=== PATIENT | male | born 1970 | race African-American/Black ===

== ENCOUNTER 2019-08-25 13:00 | Inpatient (IN) | payer BC ==
[2019-08-25] MEDS ORDERED: Sodium Chloride 0.9% 1,000 ML IV ONE ×2 (13:16→14:30)
[2019-08-25] MEDS ORDERED: Ondansetron 4 MG/2 ML SDV IVPUSH ONE (13:23)
--- NOTE | 2019-08-25 13:25 | EDM.PDOC ---
ED HPI GENERAL MEDICAL PROBLEM - General Chief Complaint: Gastrointestinal Problem Stated Complaint: WEAKNESS Time Seen by Provider: 08/25/19 13:03 Source of Information: Reports: Patient History Limitations: Reports: No Limitations - History of Present Illness INITIAL COMMENTS - FREE TEXT/NARRATIVE: HISTORY AND PHYSICAL: History of present illness: Patient is a 49-year-old male who presents to the ED today for concern of vomiting, weakness, and dizziness since Wednesday. Patient states every time he goes to eat he vomits shortly after. Patient states he had an appointment today at [facility] but had to get rescheduled for Wednesday. Patient states he has unable to weight on Wednesday to be seen so came to the ED. Patient denies any other associated symptoms or any other symptoms or concerns. Patient denies fever, chills, chest pain, shortness of breath, or cough. Denies headache, neck stiff ness, change in vision, syncope, or near syncope. Denies abdominal pain, diarrhea, constipation, or dysuria. Has not noted any blood in urine or stool. Review of systems: As per history of present illness and below otherwise all systems reviewed and negative. Past medical history: As per history of present illness and as reviewed below otherwise noncontributory. Surgical history: As per history of present illness and as reviewed below otherwise noncontributory. Social history: See social history for further information Family history: As per history of present illness and as reviewed below otherwise noncontributory. Physical exam: General: Patient is alert, oriented, and in no acute distress. Patient laying comfortably on exam table. HEENT: Atraumatic, normocephalic, pupils equal and reactive bilaterally, negative for conjunctival pallor or scleral icterus, mucous membranes dry, TMs normal bilaterally, throat clear, neck supple, nontender, trachea midline. No drooling or trismus noted. No meningeal signs. No hot potato voice noted. Lungs: Clear to auscultation, breath sounds equal bilaterally, chest nontender. Heart: S1S2, regular rate and rhythm without overt murmur Abdomen: Soft, nondistended, nontender. Negative for masses or hepatosplenomegaly. Negative for costovertebral tenderness. Pelvis: Stable nontender. Genitourinary: Deferred. Rectal: Deferred. Skin: Intact, warm, dry. No lesions or rashes noted. Extremities: Atraumatic, negative for cords or calf pain. Neurovascular unremarkable. Neuro: Awake, alert, oriented. Cranial nerves II through XII unremarkable. Cerebellum unremarkable. Motor and sensory unremarkable throughout. Exam nonfocal. Notes: Dr. Skelton consulted on patient and will admit to ICU inpatient. Voices understanding and is agreeable to plan of care. Denies any further questions or concerns at this time. Diagnostics: EKG, CBC, CMP, UA, chest x-ray, troponin, head CT, PT/INR, lipase, orthostatic vitals, ABG, blood ketone Therapeutics: Saline, Zofran, Insulin gtt Impression: Diabetic Ketoacidosis Newly diagnosed diabetes Plan: 1. Admit to ICU to Dr. Skelton as inpatient. Definitive disposition and diagnosis as appropriate pending reevaluation and review of above. - Related Data Allergies Allergy/AdvReac Type Severity Reaction Status Date / Time No Known Allergies Allergy Verified 08/25/19 13:09 Home Meds: Home Meds . [No Known Home Meds] 08/25/19 [History] Past Medical History - Past Health History Medical/Surgical History: Denies Medical/Surgical History - Infectious Disease History Infectious Disease History: Reports: None Social & Family History - Family History Family Medical History: Noncontributory - Tobacco Use Smoking Status *Q: Never Smoker - Recreational Drug Use Recreational Drug Use: No ED ROS GENERAL - Review of Systems Review Of Systems: ROS reveals no pertinent complaints other than HPI. ED EXAM, GENERAL - Physical Exam Exam: See Below (See dictation) Course - Vital Signs Last Recorded V/S: Last Vital Signs Temp 97.2 F 08/25/19 13:10 Pulse 96 08/25/19 13:10 Resp 18 08/25/19 13:10 BP 147/100 H 08/25/19 13:10 Pulse Ox 100 08/25/19 13:10 - Orders/Labs/Meds Orders: Active Orders 24 hr Category Date Time Status Admission Status [Patient Status] [ADT] Stat ADT 08/25/19 14:47 Ordered EKG Documentation Completion [RC] STAT Care 08/25/19 13:06 Active Orthostatic Vital Signs [RC] ASDIRECTED Care 08/25/19 13:26 Active GLYCOSYLATED HEMOGLOBIN,HGBA1C [CHEM] Stat Lab 08/25/19 13:30 Received Insulin Regular, Human [NovoLIN R] 100 unit Med 08/25/19 14:45 Active Sodium Chloride 0.9% [Normal Saline] 99 ml IV TITRATE Sodium Chloride 0.9% [Normal Saline] 1,000 ml Med 08/25/19 14:30 Active IV ONETIME Medication Orders Sodium Chloride (Normal Saline) 1,000 mls @ 999 mls/hr IV ONETIME ONE Stop: 08/25/19 15:30 Last Admin: 08/25/19 14:31 Dose: 999 mls/hr Insulin Human Regular 100 unit (/ Sodium Chloride) 100 mls @ 7 mls/hr IV TITRATE SOMMER; Protocol Labs: Laboratory Tests 08/25/19 08/25/19 08/25/19 Range/Units 13:30 13:30 13:30 WBC 6.64 (4.0-11.0) K/uL RBC 5.94 H (4.50-5.90) M/uL Hgb 15.7 (13.0-17.0) g/dL Hct 49.1 (38.0-50.0) % MCV 82.7 (80.0-98.0) fL MCH 26.4 L (27.0-32.0) pg MCHC 32.0 (31.0-37.0) g/dL RDW Std Deviation 43.9 (28.0-62.0) fl RDW Coeff of Gisel 15 (11.0-15.0) % Plt Count 189 (150-400) K/uL MPV 13.20 H (7.40-12.00) fL Neut % (Auto) 56.8 (48.0-80.0) % Lymph % (Auto) 35.8 (16.0-40.0) % [place] % (Auto) 6.9 (0.0-15.0) % Eos % (Auto) 0.2 (0.0-7.0) % Baso % (Auto) 0.3 (0.0-1.5) % Neut # (Auto) 3.8 (1.4-5.7) K/uL Lymph # (Auto) 2.4 (0.6-2.4) K/uL [place] # (Auto) 0.5 (0.0-0.8) K/uL Eos # (Auto) 0.0 (0.0-0.7) K/uL Baso # (Auto) 0.0 (0.0-0.1) K/uL Nucleated RBC % 0.0 /100WBC Nucleated RBCs # 0 K/uL INR 1.00 ABG pH (7.35-7.45) ABG pCO2 (35-45) mmHG ABG pO2 (75-100) mmHG ABG HCO3 (22-26) mEq/L ABG Total CO2 ABG Base Excess (-2.0-2.0) Sodium 133 L (136-148) mmol/L Potassium 5.3 H (3.5-5.1) mmol/L Chloride 93 L (98-107) mmol/L Carbon Dioxide 21.7 (21.0-32.0) mmol/L BUN 33 H (7.0-18.0) mg/dL Creatinine 2.0 H (0.8-1.3) mg/dL Est Cr Clr Drug Dosing 38.86 mL/min Estimated GFR (MDRD) 43.3 ml/min Glucose 947 H* (74-106) mg/dL POC Glucose (60-110) mg/dL Calcium 10.0 (8.5-10.1) mg/dL Total Bilirubin 0.5 (0.2-1.0) mg/dL AST 20 (15-37) IU/L ALT 35 (14-63) IU/L Alkaline Phosphatase 95 (46-116) U/L Troponin I < 0.050 (0.000-0.056) ng/mL Total Protein 9.3 H (6.4-8.2) g/dL Albumin 3.8 (3.4-5.0) g/dL Globulin 5.5 H (2.6-4.0) g/dL Albumin/Globulin Ratio 0.7 L (0.9-1.6) Lipase (73-393) U/L Urine Color Urine Appearance Urine pH (5.0-8.0) Ur Specific [place] (1.001-1.035) Urine Protein (NEGATIVE) mg/dL Urine Glucose (UA) (NEGATIVE) mg/dL Urine Ketones (NEGATIVE) mg/dL Urine Occult Blood (NEGATIVE) Urine Nitrite (NEGATIVE) Urine Bilirubin (NEGATIVE) Urine Urobilinogen (<2.0) EU/dL Ur Leukocyte Esterase (NEGATIVE) Ketones (NEG) 08/25/19 08/25/19 08/25/19 Range/Units 13:30 13:30 13:37 WBC (4.0-11.0) K/uL RBC (4.50-5.90) M/uL Hgb (13.0-17.0) g/dL Hct (38.0-50.0) % MCV (80.0-98.0) fL MCH (27.0-32.0) pg MCHC (31.0-37.0) g/dL RDW Std Deviation (28.0-62.0) fl RDW Coeff of Gisel (11.0-15.0) % Plt Count (150-400) K/uL MPV (7.40-12.00) fL Neut % (Auto) (48.0-80.0) % Lymph % (Auto) (16.0-40.0) % [place] % (Auto) (0.0-15.0) % Eos % (Auto) (0.0-7.0) % Baso % (Auto) (0.0-1.5) % Neut # (Auto) (1.4-5.7) K/uL Lymph # (Auto) (0.6-2.4) K/uL [place] # (Auto) (0.0-0.8) K/uL Eos # (Auto) (0.0-0.7) K/uL Baso # (Auto) (0.0-0.1) K/uL Nucleated RBC % /100WBC Nucleated RBCs # K/uL INR ABG pH (7.35-7.45) ABG pCO2 (35-45) mmHG ABG pO2 (75-100) mmHG ABG HCO3 (22-26) mEq/L ABG Total CO2 ABG Base Excess (-2.0-2.0) Sodium (136-148) mmol/L Potassium (3.5-5.1) mmol/L Chloride (98-107) mmol/L Carbon Dioxide (21.0-32.0) mmol/L BUN (7.0-18.0) mg/dL Creatinine (0.8-1.3) mg/dL Est Cr Clr Drug Dosing mL/min Estimated GFR (MDRD) ml/min Glucose (74-106) mg/dL POC Glucose (60-110) mg/dL Calcium (8.5-10.1) mg/dL Total Bilirubin (0.2-1.0) mg/dL AST (15-37) IU/L ALT (14-63) IU/L Alkaline Phosphatase (46-116) U/L Troponin I (0.000-0.056) ng/mL Total Protein (6.4-8.2) g/dL Albumin (3.4-5.0) g/dL Globulin (2.6-4.0) g/dL Albumin/Globulin Ratio (0.9-1.6) Lipase 218 (73-393) U/L Urine Color YELLOW Urine Appearance CLEAR Urine pH 5.5 (5.0-8.0) Ur Specific [place] 1.010 (1.001-1.035) Urine Protein NEGATIVE (NEGATIVE) mg/dL Urine Glucose (UA) >=1000 (NEGATIVE) mg/dL Urine Ketones 15 H (NEGATIVE) mg/dL Urine Occult Blood NEGATIVE (NEGATIVE) Urine Nitrite NEGATIVE (NEGATIVE) Urine Bilirubin NEGATIVE (NEGATIVE) Urine Urobilinogen 0.2 (<2.0) EU/dL Ur Leukocyte Esterase NEGATIVE (NEGATIVE) Ketones SMALL H (NEG) 08/25/19 08/25/19 Range/Units 14:26 14:36 WBC (4.0-11.0) K/uL RBC (4.50-5.90) M/uL Hgb (13.0-17.0) g/dL Hct (38.0-50.0) % MCV (80.0-98.0) fL MCH (27.0-32.0) pg MCHC (31.0-37.0) g/dL RDW Std Deviation (28.0-62.0) fl RDW Coeff of Gisel (11.0-15.0) % Plt Count (150-400) K/uL MPV (7.40-12.00) fL Neut % (Auto) (48.0-80.0) % Lymph % (Auto) (16.0-40.0) % [place] % (Auto) (0.0-15.0) % Eos % (Auto) (0.0-7.0) % Baso % (Auto) (0.0-1.5) % Neut # (Auto) (1.4-5.7) K/uL Lymph # (Auto) (0.6-2.4) K/uL [place] # (Auto) (0.0-0.8) K/uL Eos # (Auto) (0.0-0.7) K/uL Baso # (Auto) (0.0-0.1) K/uL Nucleated RBC % /100WBC Nucleated RBCs # K/uL INR ABG pH 7.330 L (7.35-7.45) ABG pCO2 39 (35-45) mmHG ABG pO2 66 L (75-100) mmHG ABG HCO3 21 L (22-26) mEq/L ABG Total CO2 18.5 ABG Base Excess -4.9 L (-2.0-2.0) Sodium (136-148) mmol/L Potassium (3.5-5.1) mmol/L Chloride (98-107) mmol/L Carbon Dioxide (21.0-32.0) mmol/L BUN (7.0-18.0) mg/dL Creatinine (0.8-1.3) mg/dL Est Cr Clr Drug Dosing mL/min Estimated GFR (MDRD) ml/min Glucose (74-106) mg/dL POC Glucose > 500 H (60-110) mg/dL Calcium (8.5-10.1) mg/dL Total Bilirubin (0.2-1.0) mg/dL AST (15-37) IU/L ALT (14-63) IU/L Alkaline Phosphatase (46-116) U/L Troponin I (0.000-0.056) ng/mL Total Protein (6.4-8.2) g/dL Albumin (3.4-5.0) g/dL Globulin (2.6-4.0) g/dL Albumin/Globulin Ratio (0.9-1.6) Lipase (73-393) U/L Urine Color Urine Appearance Urine pH (5.0-8.0) Ur Specific [place] (1.001-1.035) Urine Protein (NEGATIVE) mg/dL Urine Glucose (UA) (NEGATIVE) mg/dL Urine Ketones (NEGATIVE) mg/dL Urine Occult Blood (NEGATIVE) Urine Nitrite (NEGATIVE) Urine Bilirubin (NEGATIVE) Urine Urobilinogen (<2.0) EU/dL Ur Leukocyte Esterase (NEGATIVE) Ketones (NEG) Meds: Medications Generic Name Dose Route Start Last Admin Trade Name Ryanne PRN Reason Stop Dose Admin Sodium Chloride 1,000 mls @ 999 mls/hr 08/25/19 14:30 08/25/19 14:31 Normal Saline IV 08/25/19 15:30 999 mls/hr ONETIME ONE Administration Insulin Human Regular 100 unit 100 mls @ 7 mls/hr 08/25/19 14:45 / Sodium Chloride IV TITRATE SOMMER Protocol 7 UNIT/HR Discontinued Medications Generic Name Dose Route Start Last Admin Trade Name Ryanne PRN Reason Stop Dose Admin Sodium Chloride 1,000 mls @ 999 mls/hr 08/25/19 13:16 08/25/19 13:34 Normal Saline IV 08/25/19 14:16 999 mls/hr STAT ONE Administration Ondansetron HCl 4 mg 08/25/19 13:23 08/25/19 13:34 Zofran IVPUSH 08/25/19 13:24 4 mg ONETIME ONE Administration Departure - Departure Time of Disposition: 14:49 Disposition: Admitted As Inpatient 66 Clinical Impression: Newly diagnosed diabetes Diabetic ketoacidosis Qualifiers: Diabetes mellitus type: other specified (including MANDIE) Diabetes mellitus complication detail: without coma Qualified Code(s): E13.10 - Other specified diabetes mellitus with ketoacidosis without coma - Discharge Information Referrals: PCP,None [Primary Care Provider] - Forms: ED Department Discharge - My Orders Last 24 Hours: My Active Orders 08/25/19 13:06 EKG Documentation Completion [RC] STAT 08/25/19 13:26 Orthostatic Vital Signs [RC] ASDIRECTED 08/25/19 13:30 GLYCOSYLATED HEMOGLOBIN,HGBA1C [CHEM] Stat 08/25/19 14:30 Sodium Chloride 0.9% [Normal Saline] 1,000 ml IV ONETIME 08/25/19 14:45 Insulin Regular, Human [NovoLIN R] 100 unit Sodium Chloride 0.9% [Normal Saline] 99 ml IV TITRATE 08/25/19 14:47 Admission Status [Patient Status] [ADT] Stat - Assessment/Plan Last 24 Hours: My Active Orders 08/25/19 13:06 EKG Documentation Completion [RC] STAT 08/25/19 13:26 Orthostatic Vital Signs [RC] ASDIRECTED 08/25/19 13:30 GLYCOSYLATED HEMOGLOBIN,HGBA1C [CHEM] Stat 08/25/19 14:30 Sodium Chloride 0.9% [Normal Saline] 1,000 ml IV ONETIME 08/25/19 14:45 Insulin Regular, Human [NovoLIN R] 100 unit Sodium Chloride 0.9% [Normal Saline] 99 ml IV TITRATE 08/25/19 14:47 Admission Status [Patient Status] [ADT] Stat
--- NOTE | 2019-08-25 13:55 | CR ---
Chest: Portable view of the chest was obtained. Comparison: No prior chest x-ray is available. Heart size and mediastinum are normal. Lungs are clear. Bony structures are grossly intact. Impression: Nothing acute is identified on portable chest x-ray. Diagnostic code #1 MTDD
[2019-08-25 14:11] LABS: BLOOD UREA NITROGEN,BUN 33 mg/dL (7.0-18.0); CARBON DIOXIDE,CO2 21.7 mmol/L (21.0-32.0); CHLORIDE,CL 93 mmol/L (98-107); POTASSIUM,K 5.3 mmol/L (3.5-5.1); SODIUM,NA 133 mmol/L (136-148)
--- NOTE | 2019-08-25 14:24 | CT ---
Head CT Technique: Multiple axial sections through the brain were obtained. Intravenous contrast was not utilized. Comparison: No prior intracranial imaging is available. Findings: Ventricles along with basal cistern and sulci over the convexities are within normal limits for the patient's age. No abnormal parenchymal densities are seen. No evidence of intracranial hemorrhage. No midline shift or mass effect is seen. Mastoid sinuses are clear. No acute paranasal sinus disease is seen. Impression: Nothing acute is appreciated on noncontrast head CT exam. Diagnostic code #1 MTDD
[2019-08-25 14:34] LABS: GLUCOSE RANDOM 947 mg/dL (74-106)
[2019-08-25 15:03] LABS: HEMOGLOBIN A1C 11.3 % (4.5-6.2)
--- NOTE | 2019-08-25 15:50 | PCM.HP.2 ---
H&P History of Present Illness - General Date of Service: 08/25/19 Admit Problem/Dx: Admission Diagnosis/Problem Admission Diagnosis/Problem Diabetic ketoacidosis - History of Present Illness Initial Comments - Free Text/Narative: 49 y/o male with no PMH presenting today to the ER complaining of weakness, confusion. Patient has been having nausea, vomiting, weakness since last Wednesday. No previous history of diabetes. Denies any recent infections. No fevers. Denies any chest pain, dyspnea, abdominal pain, dysuria, diarrhea. In the ER, he was found to be hyperglycemic at 900. In addition, ABG showed pH 7.33 , HCO3 21. Some urine ketones. CT head did not show any intracranial hemorrhage. Chest xray was unremarkable. He was started on insulin drip and given 2 NS boluses. Most recent glucose was still above 500 but patient more alert and responding to questions. - Related Data Allergies/Adverse Reactions: Allergies Allergy/AdvReac Type Severity Reaction Status Date / Time No Known Allergies Allergy Verified 08/25/19 13:09 Home Medications: Home Meds . [No Known Home Meds] 08/25/19 [History] Past Medical History - Past Health History Medical/Surgical History: Denies Medical/Surgical History - Infectious Disease History Infectious Disease History: Reports: None Social & Family History - Family History Family Medical History: Noncontributory - Tobacco Use Smoking Status *Q: Never Smoker - Recreational Drug Use Recreational Drug Use: No H&P Review of Systems - Review of Systems: Review Of Systems: ROS reveals no pertinent complaints other than HPI. Exam - Exam Exam: See Below - Vital Signs Vital Signs: Last Vital Signs Temp 36.2 C 08/25/19 13:10 Pulse 96 08/25/19 13:10 Resp 18 08/25/19 13:10 BP 147/100 H 08/25/19 13:10 Pulse Ox 100 08/25/19 13:10 Orthostatic Blood Pressure [ 131/91 Standing] Orthostatic Blood Pressure [ 117/83 Sitting] Orthostatic Blood Pressure [ 134/78 Supine] Weight: 77.564 kg - Exam General: Alert, Oriented, Cooperative HEENT: Other (dry oral mucosa) Lungs: Clear to Auscultation, Normal Respiratory Effort. No: Crackles, Wheezing Cardiovascular: Regular Rate, Regular Rhythm GI/Abdominal Exam: Normal Bowel Sounds, Soft, Non-Tender Extremities: Normal Inspection, No Pedal Edema Skin: Dry Neuro Extensive - Mental Status: Alert, Oriented x3 - Patient Data Lab Results Last 24 hrs: Laboratory Results - last 24 hr 08/25/19 08/25/19 08/25/19 Range/Units 13:30 13:30 13:30 WBC 6.64 (4.0-11.0) K/uL RBC 5.94 H (4.50-5.90) M/uL Hgb 15.7 (13.0-17.0) g/dL Hct 49.1 (38.0-50.0) % MCV 82.7 (80.0-98.0) fL MCH 26.4 L (27.0-32.0) pg MCHC 32.0 (31.0-37.0) g/dL RDW Std Deviation 43.9 (28.0-62.0) fl RDW Coeff of Gisel 15 (11.0-15.0) % Plt Count 189 (150-400) K/uL MPV 13.20 H (7.40-12.00) fL Neut % (Auto) 56.8 (48.0-80.0) % Lymph % (Auto) 35.8 (16.0-40.0) % S[place]y % (Auto) 6.9 (0.0-15.0) % Eos % (Auto) 0.2 (0.0-7.0) % Baso % (Auto) 0.3 (0.0-1.5) % Neut # (Auto) 3.8 (1.4-5.7) K/uL Lymph # (Auto) 2.4 (0.6-2.4) K/uL [place]y # (Auto) 0.5 (0.0-0.8) K/uL Eos # (Auto) 0.0 (0.0-0.7) K/uL Baso # (Auto) 0.0 (0.0-0.1) K/uL Nucleated RBC % 0.0 /100WBC Nucleated RBCs # 0 K/uL INR 1.00 ABG pH (7.35-7.45) ABG pCO2 (35-45) mmHG ABG pO2 (75-100) mmHG ABG HCO3 (22-26) mEq/L ABG Total CO2 ABG Base Excess (-2.0-2.0) Sodium 133 L (136-148) mmol/L Potassium 5.3 H (3.5-5.1) mmol/L Chloride 93 L (98-107) mmol/L Carbon Dioxide 21.7 (21.0-32.0) mmol/L BUN 33 H (7.0-18.0) mg/dL Creatinine 2.0 H (0.8-1.3) mg/dL Est Cr Clr Drug Dosing 38.86 mL/min Estimated GFR (MDRD) 43.3 ml/min Glucose 947 H* (74-106) mg/dL POC Glucose (60-110) mg/dL Hemoglobin A1c (4.5-6.2) % Calcium 10.0 (8.5-10.1) mg/dL Total Bilirubin 0.5 (0.2-1.0) mg/dL AST 20 (15-37) IU/L ALT 35 (14-63) IU/L Alkaline Phosphatase 95 (46-116) U/L Troponin I < 0.050 (0.000-0.056) ng/mL Total Protein 9.3 H (6.4-8.2) g/dL Albumin 3.8 (3.4-5.0) g/dL Globulin 5.5 H (2.6-4.0) g/dL Albumin/Globulin Ratio 0.7 L (0.9-1.6) Lipase (73-393) U/L Urine Color Urine Appearance Urine pH (5.0-8.0) Ur Specific [place] (1.001-1.035) Urine Protein (NEGATIVE) mg/dL Urine Glucose (UA) (NEGATIVE) mg/dL Urine Ketones (NEGATIVE) mg/dL Urine Occult Blood (NEGATIVE) Urine Nitrite (NEGATIVE) Urine Bilirubin (NEGATIVE) Urine Urobilinogen (<2.0) EU/dL Ur Leukocyte Esterase (NEGATIVE) Ketones (NEG) 08/25/19 08/25/19 08/25/19 Range/Units 13:30 13:30 13:30 WBC (4.0-11.0) K/uL RBC (4.50-5.90) M/uL Hgb (13.0-17.0) g/dL Hct (38.0-50.0) % MCV (80.0-98.0) fL MCH (27.0-32.0) pg MCHC (31.0-37.0) g/dL RDW Std Deviation (28.0-62.0) fl RDW Coeff of Gisel (11.0-15.0) % Plt Count (150-400) K/uL MPV (7.40-12.00) fL Neut % (Auto) (48.0-80.0) % Lymph % (Auto) (16.0-40.0) % Sibley % (Auto) (0.0-15.0) % Eos % (Auto) (0.0-7.0) % Baso % (Auto) (0.0-1.5) % Neut # (Auto) (1.4-5.7) K/uL Lymph # (Auto) (0.6-2.4) K/uL S[place]y # (Auto) (0.0-0.8) K/uL Eos # (Auto) (0.0-0.7) K/uL Baso # (Auto) (0.0-0.1) K/uL Nucleated RBC % /100WBC Nucleated RBCs # K/uL INR ABG pH (7.35-7.45) ABG pCO2 (35-45) mmHG ABG pO2 (75-100) mmHG ABG HCO3 (22-26) mEq/L ABG Total CO2 ABG Base Excess (-2.0-2.0) Sodium (136-148) mmol/L Potassium (3.5-5.1) mmol/L Chloride (98-107) mmol/L Carbon Dioxide (21.0-32.0) mmol/L BUN (7.0-18.0) mg/dL Creatinine (0.8-1.3) mg/dL Est Cr Clr Drug Dosing mL/min Estimated GFR (MDRD) ml/min Glucose (74-106) mg/dL POC Glucose (60-110) mg/dL Hemoglobin A1c 11.3 H (4.5-6.2) % Calcium (8.5-10.1) mg/dL Total Bilirubin (0.2-1.0) mg/dL AST (15-37) IU/L ALT (14-63) IU/L Alkaline Phosphatase (46-116) U/L Troponin I (0.000-0.056) ng/mL Total Protein (6.4-8.2) g/dL Albumin (3.4-5.0) g/dL Globulin (2.6-4.0) g/dL Albumin/Globulin Ratio (0.9-1.6) Lipase 218 (73-393) U/L Urine Color Urine Appearance Urine pH (5.0-8.0) Ur Specific [place] (1.001-1.035) Urine Protein (NEGATIVE) mg/dL Urine Glucose (UA) (NEGATIVE) mg/dL Urine Ketones (NEGATIVE) mg/dL Urine Occult Blood (NEGATIVE) Urine Nitrite (NEGATIVE) Urine Bilirubin (NEGATIVE) Urine Urobilinogen (<2.0) EU/dL Ur Leukocyte Esterase (NEGATIVE) Ketones SMALL H (NEG) 08/25/19 08/25/19 08/25/19 Range/Units 13:37 14:26 14:36 WBC (4.0-11.0) K/uL RBC (4.50-5.90) M/uL Hgb (13.0-17.0) g/dL Hct (38.0-50.0) % MCV (80.0-98.0) fL MCH (27.0-32.0) pg MCHC (31.0-37.0) g/dL RDW Std Deviation (28.0-62.0) fl RDW Coeff of Gisel (11.0-15.0) % Plt Count (150-400) K/uL MPV (7.40-12.00) fL Neut % (Auto) (48.0-80.0) % Lymph % (Auto) (16.0-40.0) % Sibley % (Auto) (0.0-15.0) % Eos % (Auto) (0.0-7.0) % Baso % (Auto) (0.0-1.5) % Neut # (Auto) (1.4-5.7) K/uL Lymph # (Auto) (0.6-2.4) K/uL [place] # (Auto) (0.0-0.8) K/uL Eos # (Auto) (0.0-0.7) K/uL Baso # (Auto) (0.0-0.1) K/uL Nucleated RBC % /100WBC Nucleated RBCs # K/uL INR ABG pH 7.330 L (7.35-7.45) ABG pCO2 39 (35-45) mmHG ABG pO2 66 L (75-100) mmHG ABG HCO3 21 L (22-26) mEq/L ABG Total CO2 18.5 ABG Base Excess -4.9 L (-2.0-2.0) Sodium (136-148) mmol/L Potassium (3.5-5.1) mmol/L Chloride (98-107) mmol/L Carbon Dioxide (21.0-32.0) mmol/L BUN (7.0-18.0) mg/dL Creatinine (0.8-1.3) mg/dL Est Cr Clr Drug Dosing mL/min Estimated GFR (MDRD) ml/min Glucose (74-106) mg/dL POC Glucose > 500 H (60-110) mg/dL Hemoglobin A1c (4.5-6.2) % Calcium (8.5-10.1) mg/dL Total Bilirubin (0.2-1.0) mg/dL AST (15-37) IU/L ALT (14-63) IU/L Alkaline Phosphatase (46-116) U/L Troponin I (0.000-0.056) ng/mL Total Protein (6.4-8.2) g/dL Albumin (3.4-5.0) g/dL Globulin (2.6-4.0) g/dL Albumin/Globulin Ratio (0.9-1.6) Lipase (73-393) U/L Urine Color YELLOW Urine Appearance CLEAR Urine pH 5.5 (5.0-8.0) Ur Specific [place] 1.010 (1.001-1.035) Urine Protein NEGATIVE (NEGATIVE) mg/dL Urine Glucose (UA) >=1000 (NEGATIVE) mg/dL Urine Ketones 15 H (NEGATIVE) mg/dL Urine Occult Blood NEGATIVE (NEGATIVE) Urine Nitrite NEGATIVE (NEGATIVE) Urine Bilirubin NEGATIVE (NEGATIVE) Urine Urobilinogen 0.2 (<2.0) EU/dL Ur Leukocyte Esterase NEGATIVE (NEGATIVE) Ketones (NEG) 08/25/19 Range/Units 15:35 WBC (4.0-11.0) K/uL RBC (4.50-5.90) M/uL Hgb (13.0-17.0) g/dL Hct (38.0-50.0) % MCV (80.0-98.0) fL MCH (27.0-32.0) pg MCHC (31.0-37.0) g/dL RDW Std Deviation (28.0-62.0) fl RDW Coeff of Gisel (11.0-15.0) % Plt Count (150-400) K/uL MPV (7.40-12.00) fL Neut % (Auto) (48.0-80.0) % Lymph % (Auto) (16.0-40.0) % [place] % (Auto) (0.0-15.0) % Eos % (Auto) (0.0-7.0) % Baso % (Auto) (0.0-1.5) % Neut # (Auto) (1.4-5.7) K/uL Lymph # (Auto) (0.6-2.4) K/uL [place] # (Auto) (0.0-0.8) K/uL Eos # (Auto) (0.0-0.7) K/uL Baso # (Auto) (0.0-0.1) K/uL Nucleated RBC % /100WBC Nucleated RBCs # K/uL INR ABG pH (7.35-7.45) ABG pCO2 (35-45) mmHG ABG pO2 (75-100) mmHG ABG HCO3 (22-26) mEq/L ABG Total CO2 ABG Base Excess (-2.0-2.0) Sodium (136-148) mmol/L Potassium (3.5-5.1) mmol/L Chloride (98-107) mmol/L Carbon Dioxide (21.0-32.0) mmol/L BUN (7.0-18.0) mg/dL Creatinine (0.8-1.3) mg/dL Est Cr Clr Drug Dosing mL/min Estimated GFR (MDRD) ml/min Glucose (74-106) mg/dL POC Glucose > 500 H (60-110) mg/dL Hemoglobin A1c (4.5-6.2) % Calcium (8.5-10.1) mg/dL Total Bilirubin (0.2-1.0) mg/dL AST (15-37) IU/L ALT (14-63) IU/L Alkaline Phosphatase (46-116) U/L Troponin I (0.000-0.056) ng/mL Total Protein (6.4-8.2) g/dL Albumin (3.4-5.0) g/dL Globulin (2.6-4.0) g/dL Albumin/Globulin Ratio (0.9-1.6) Lipase (73-393) U/L Urine Color Urine Appearance Urine pH (5.0-8.0) Ur Specific [place] (1.001-1.035) Urine Protein (NEGATIVE) mg/dL Urine Glucose (UA) (NEGATIVE) mg/dL Urine Ketones (NEGATIVE) mg/dL Urine Occult Blood (NEGATIVE) Urine Nitrite (NEGATIVE) Urine Bilirubin (NEGATIVE) Urine Urobilinogen (<2.0) EU/dL Ur Leukocyte Esterase (NEGATIVE) Ketones (NEG) Result Diagrams: 08/25/19 13:30 08/25/19 13:30 Problem List Initiated/Reviewed/Updated: Yes Orders Last 24hrs: Active Orders 24 hr Category Date Time Status Admission Status [Patient Status] [ADT] Stat ADT 08/25/19 14:47 Active Cardiac Monitoring [RC] CONTINUOUS Care 08/25/19 15:18 Active EKG Documentation Completion [RC] STAT Care 08/25/19 13:06 Active Orthostatic Vital Signs [RC] ASDIRECTED Care 08/25/19 13:26 Active Oxygen Therapy [RC] PRN Care 08/25/19 15:17 Active Up With Assistance [RC] ASDIRECTED Care 08/25/19 15:17 Active VTE/DVT Education [RC] PER UNIT ROUTINE Care 08/25/19 15:17 Active Vital Signs [RC] Q4H Care 08/25/19 15:17 Active [place] [employer] Diet [DIET] Diet 08/25/19 Dinner Active BASIC METABOLIC PANEL,BMP [CHEM] Q4H Lab 08/25/19 16:00 Ordered BASIC METABOLIC PANEL,BMP [CHEM] Q4H Lab 08/25/19 20:00 Ordered BASIC METABOLIC PANEL,BMP [CHEM] Q4H Lab 08/26/19 00:00 Ordered BASIC METABOLIC PANEL,BMP [CHEM] Q4H Lab 08/26/19 04:00 Ordered CBC WITH AUTO DIFF [HEME] AM Lab 08/26/19 05:11 Ordered CBC WITH AUTO DIFF [HEME] AM Lab 08/27/19 05:11 Ordered CBC WITH AUTO DIFF [HEME] AM Lab 08/28/19 05:11 Ordered COMPREHENSIVE METABOLIC PN,CMP [CHEM] AM Lab 08/26/19 05:11 Ordered COMPREHENSIVE METABOLIC PN,CMP [CHEM] AM Lab 08/27/19 05:11 Ordered COMPREHENSIVE METABOLIC PN,CMP [CHEM] AM Lab 08/28/19 05:11 Ordered MAGNESIUM [CHEM] Routine Lab 08/25/19 15:25 Ordered PHOSPHORUS [CHEM] Routine Lab 08/25/19 15:25 Ordered Enoxaparin [Lovenox] Med 08/25/19 15:30 Active 40 mg SUBCUT Q24H Insulin Regular, Human [NovoLIN R] 100 unit Med 08/25/19 14:45 Active Sodium Chloride 0.9% [Normal Saline] 99 ml IV TITRATE Sodium Chloride 0.9% [Normal Saline] 1,000 ml Med 08/25/19 15:30 Active IV BOLUS Resuscitation Status Routine Resus Stat 08/25/19 15:17 Ordered Medication Orders Enoxaparin Sodium (Lovenox) 40 mg SUBCUT Q24H SOMMER Insulin Human Regular 100 unit (/ Sodium Chloride) 100 mls @ 7 mls/hr IV TITRATE SOMMER; Protocol Last Admin: 08/25/19 15:04 Dose: 7 unit/hr, 7 mls/hr Sodium Chloride (Normal Saline) 1,000 mls @ 999 mls/hr IV BOLUS SOMMER Stop: 08/28/19 16:31 Assessment/Plan Comment:: A: 1. Hyperglycemic hyperosmolar state 2. Acute kidney injury 3. Hyperkalemia 4. Hypermagnesemia 5. Hyperphosphatemia 6. Hypertension 7. New onset diabetes type 2 P: 1. HHS- will continue with NS boluses x4. Insulin drip with goal BG 250-300 and then start D5NS. Will transition to SQ insulin then and encourage PO intake. Will monitor electrolytes Q4H and replace as needed. Dispo: 1-2 days
[2019-08-25] MEDS: Sodium Chloride 0.9% 1,000 ML IV SCH ×2 (15:56→17:00)
[2019-08-25] MEDS: Enoxaparin 40 MG/0.4 ML Syringe SUBCUT SCH (16:15)
[2019-08-25 17:02] LABS: CARBON DIOXIDE,CO2 24.4 mmol/L (21.0-32.0); POTASSIUM,K 4.6 mmol/L (3.5-5.1)
[2019-08-25] MEDS ORDERED: Sodium Chloride 0.45% 1,000 ML IV SCH (17:15)
--- NOTE | 2019-08-25 17:50 | PN ---
THC Physician - Brief Progress [id number]/08/2019 16:10[facility] Neelima Salcedo, [place] - GINO (JANIE) - GINO HERNANDEZLORISamuel of Service 08/25/2019 16:10HPI/Events of Note eICU Admission [id number] M admitted with new onset DM, HHNK, and ARF. BS 947, creatinine 2.0. CO2 21.7, anion gap 18. Seen on camera, comfortable. Reviewed notes in the EMR and bedside nurse . CT head and CXR showed no acute issues. UA clean.eICU Recommendations:1. Started IV insulin dri p per protocol.2. Check serial electrolytes while on insulin drip.3. Suggest check renal US if crea tinine not improved with IVF.4. Aggressive IVF.5. Lovenox for DVT prophylaxis.Thank you for guerreroin g us to particpate in the care of your patient.Interventions Major-Acute renal failure - evaluation a nd management, Hyperglycemia - active titration of insulin therapyIntermediate-Communication with oth er healthcare providers and/or family, Diagnostic test evaluation, Medication change / dose adjustmen t
[2019-08-25] MEDS ORDERED: Dextrose 5%-0.45% NaCl 1,000 ML IV SCH (18:15)
[2019-08-25] MEDS ORDERED: Sodium Chloride 0.9% 1,000 ML IV SCH (19:30)
--- NOTE | 2019-08-25 19:50 | PN ---
THC Physician - Brief Progress McqdAYBRWGSYA87/08/2019 18:36[facility] Neelima garciaMARZENA - GINO [facility] - Samuel MCGREGOR of Service 08/25/2019 18:36HPI/Events of Note Brief eICU NoteCase reviewed with Provider. Glucose down to 300, switching to D5 half now. Cont to monitor BMP q4.We will follow.Interventions Intermediate-Communication with other healthcare providers and/or family, Hyperglycemia - evaluation and treatment
[2019-08-25 20:50] LABS: BLOOD UREA NITROGEN,BUN 22 mg/dL (7.0-18.0); CARBON DIOXIDE,CO2 27.3 mmol/L (21.0-32.0); CHLORIDE,CL 110 mmol/L (98-107); GLUCOSE RANDOM 357 mg/dL (74-106); POTASSIUM,K 4.2 mmol/L (3.5-5.1); SODIUM,NA 144 mmol/L (136-148)
--- NOTE | 2019-08-25 22:14 | PN ---
THC Physician - Brief Progress KrkuJOKSAFMEE35/08/2019 22:12[facility] Neelima garcia, [place] - GINO (JANIE) - Samuel MCGREGOR of Service 08/25/2019 22:12HPI/Events of Note BG < 250. next BMP at mid night. ABNER and co2 improving.Plan:- D5 half NS at 75 ml/hr ordered - follow BMP.Interventions Major-Hyperglycemia - active titration of insulin therapyElectronically Si gned by: ASHLEY ALEGRIA) on 08/25/2019 22:13
[2019-08-25] MEDS: Dextrose 5%-0.45% NaCl 1,000 ML IV SCH (22:25)
[2019-08-26 00:39] LABS: BLOOD UREA NITROGEN,BUN 19 mg/dL (7.0-18.0); CHLORIDE,CL 112 mmol/L (98-107); GLUCOSE RANDOM 105 mg/dL (74-106); POTASSIUM,K 4.3 mmol/L (3.5-5.1); SODIUM,NA 148 mmol/L (136-148)
--- NOTE | 2019-08-26 02:04 | PN ---
THC Physician - Brief Progress [id number]/09/2019 01:47[facility] Neelima Salcedo, [place] - GINO (JANIE) - Samuel MCGREGOR of Service 08/26/2019 01:47HPI/Events of Note BMP came back with improvement in the acute kidney injury. Bicarbonate 29. On insulin at 1 minute/h. Getting D5 half NS at 125 mL/h. Discussed with the bedside RN.1. New onset diabetes. Mo stly type II.-We will start long-acting Gargaline insulin 10 units subcutaneous starting at 2 AM- wit h short-acting Aspart insulin every 4 hours from 4 am-. Stop her insulin drip after 1 hour after gar galine . - consider Insulin C level , endocrine consult.Interventions Major-Hyperglycemia - active ti tration of insulin therapyIntermediate-Communication with other healthcare providers and/or familyEle ctronically Signed by: ASHLEY ALEGRIA) on 08/26/2019 02:03
[2019-08-26] MEDS: Insulin Glargine,Human Rec. Analog 100 Units/ML 3 ML Pen SUBCUT SCH (02:05)
[2019-08-26] MEDS: Insulin Aspart 100 Units/ML 3 ML Pen SUBCUT SCH ×5 (04:13→19:59)
[2019-08-26 04:28] LABS: BLOOD UREA NITROGEN,BUN 19 mg/dL (7.0-18.0); CARBON DIOXIDE,CO2 24.8 mmol/L (21.0-32.0); CHLORIDE,CL 109 mmol/L (98-107); GLUCOSE RANDOM 221 mg/dL (74-106); POTASSIUM,K 4.5 mmol/L (3.5-5.1); SODIUM,NA 145 mmol/L (136-148)
[2019-08-26] MEDS ORDERED: Acetaminophen 500 MG Tab PO PRN (08:41)
--- NOTE | 2019-08-26 08:48 | PN ---
THC Physician - Brief Progress [id number]/09/2019 08:44[facility] Neelima Salcedo, MARZENA - GINO (JANIE) - Samuel MCGREGOR of Service 08/26/2019 08:44HPI/Events of Note Brief eICU NoteEMR reviewed.Patient seen on camera: sitting up in bed NADI spoke with patient 's Nurse: requests Tylenol prn for headache and sore throat, entered orderlabs notedHyperglycemia: im proved, patient on SC insulin. Further management per inpatient team.Proph: LovenoxPlease call us if needed.Thank you for allowing us to participate in your patient's care.Interventions Intermediate-Co mmunication with other healthcare providers and/or family, Hyperglycemia - evaluation and treatment, Pain - evaluation and managementElectronically Signed by: Lo Ojeda) on 9 08:47
[2019-08-26] MEDS: Dextrose 5%-0.45% NaCl 1,000 ML IV SCH (08:50)
--- NOTE | 2019-08-26 12:58 | PCM.PN ---
- General Info Date of Service: 08/26/19 - Review of Systems Systems Review Comment:: feeling better, nausea resolved. - Patient Data Vitals - Most Recent: Last Vital Signs Temp 36.5 C 08/26/19 08:00 Pulse 65 08/26/19 12:00 Resp 13 08/26/19 12:00 BP 128/84 08/26/19 12:00 Pulse Ox 96 08/26/19 12:00 Orthostatic Blood Pressure [ 131/91 Standing] Orthostatic Blood Pressure [ 117/83 Sitting] Orthostatic Blood Pressure [ 134/78 Supine] Weight - Most Recent: 77.564 kg I&O - Last 24 Hours: Intake & Output 08/25/19 08/26/19 08/26/19 22:59 06:59 14:59 Intake Total 2637 1407 490 Output Total 420 850 Balance 2217 557 490 Lab Results Last 24 Hours: Laboratory Results - last 24 hr 08/25/19 08/25/19 08/25/19 Range/Units 13:30 13:30 13:30 WBC 6.64 (4.0-11.0) K/uL RBC 5.94 H (4.50-5.90) M/uL Hgb 15.7 (13.0-17.0) g/dL Hct 49.1 (38.0-50.0) % MCV 82.7 (80.0-98.0) fL MCH 26.4 L (27.0-32.0) pg MCHC 32.0 (31.0-37.0) g/dL RDW Std Deviation 43.9 (28.0-62.0) fl RDW Coeff of Gisel 15 (11.0-15.0) % Plt Count 189 (150-400) K/uL MPV 13.20 H (7.40-12.00) fL Neut % (Auto) 56.8 (48.0-80.0) % Lymph % (Auto) 35.8 (16.0-40.0) % [place] % (Auto) 6.9 (0.0-15.0) % Eos % (Auto) 0.2 (0.0-7.0) % Baso % (Auto) 0.3 (0.0-1.5) % Neut # (Auto) 3.8 (1.4-5.7) K/uL Lymph # (Auto) 2.4 (0.6-2.4) K/uL [place] # (Auto) 0.5 (0.0-0.8) K/uL Eos # (Auto) 0.0 (0.0-0.7) K/uL Baso # (Auto) 0.0 (0.0-0.1) K/uL Nucleated RBC % 0.0 /100WBC Nucleated RBCs # 0 K/uL INR 1.00 ABG pH (7.35-7.45) ABG pCO2 (35-45) mmHG ABG pO2 (75-100) mmHG ABG HCO3 (22-26) mEq/L ABG Total CO2 ABG Base Excess (-2.0-2.0) Sodium 133 L (136-148) mmol/L Potassium 5.3 H (3.5-5.1) mmol/L Chloride 93 L (98-107) mmol/L Carbon Dioxide 21.7 (21.0-32.0) mmol/L BUN 33 H (7.0-18.0) mg/dL Creatinine 2.0 H (0.8-1.3) mg/dL Est Cr Clr Drug Dosing 38.86 mL/min Estimated GFR (MDRD) 43.3 ml/min Glucose 947 H* (74-106) mg/dL POC Glucose (60-110) mg/dL Hemoglobin A1c (4.5-6.2) % Calcium 10.0 (8.5-10.1) mg/dL Phosphorus (2.6-4.7) mg/dL Magnesium (1.8-2.4) mg/dL Total Bilirubin 0.5 (0.2-1.0) mg/dL AST 20 (15-37) IU/L ALT 35 (14-63) IU/L Alkaline Phosphatase 95 (46-116) U/L Troponin I < 0.050 (0.000-0.056) ng/mL Total Protein 9.3 H (6.4-8.2) g/dL Albumin 3.8 (3.4-5.0) g/dL Globulin 5.5 H (2.6-4.0) g/dL Albumin/Globulin Ratio 0.7 L (0.9-1.6) Lipase (73-393) U/L Urine Color Urine Appearance Urine pH (5.0-8.0) Ur Specific Mcgregor (1.001-1.035) Urine Protein (NEGATIVE) mg/dL Urine Glucose (UA) (NEGATIVE) mg/dL Urine Ketones (NEGATIVE) mg/dL Urine Occult Blood (NEGATIVE) Urine Nitrite (NEGATIVE) Urine Bilirubin (NEGATIVE) Urine Urobilinogen (<2.0) EU/dL Ur Leukocyte Esterase (NEGATIVE) Ketones (NEG) 08/25/19 08/25/19 08/25/19 Range/Units 13:30 13:30 13:30 WBC (4.0-11.0) K/uL RBC (4.50-5.90) M/uL Hgb (13.0-17.0) g/dL Hct (38.0-50.0) % MCV (80.0-98.0) fL MCH (27.0-32.0) pg MCHC (31.0-37.0) g/dL RDW Std Deviation (28.0-62.0) fl RDW Coeff of Gisel (11.0-15.0) % Plt Count (150-400) K/uL MPV (7.40-12.00) fL Neut % (Auto) (48.0-80.0) % Lymph % (Auto) (16.0-40.0) % [place] % (Auto) (0.0-15.0) % Eos % (Auto) (0.0-7.0) % Baso % (Auto) (0.0-1.5) % Neut # (Auto) (1.4-5.7) K/uL Lymph # (Auto) (0.6-2.4) K/uL [place] # (Auto) (0.0-0.8) K/uL Eos # (Auto) (0.0-0.7) K/uL Baso # (Auto) (0.0-0.1) K/uL Nucleated RBC % /100WBC Nucleated RBCs # K/uL INR ABG pH (7.35-7.45) ABG pCO2 (35-45) mmHG ABG pO2 (75-100) mmHG ABG HCO3 (22-26) mEq/L ABG Total CO2 ABG Base Excess (-2.0-2.0) Sodium (136-148) mmol/L Potassium (3.5-5.1) mmol/L Chloride (98-107) mmol/L Carbon Dioxide (21.0-32.0) mmol/L BUN (7.0-18.0) mg/dL Creatinine (0.8-1.3) mg/dL Est Cr Clr Drug Dosing mL/min Estimated GFR (MDRD) ml/min Glucose (74-106) mg/dL POC Glucose (60-110) mg/dL Hemoglobin A1c 11.3 H (4.5-6.2) % Calcium (8.5-10.1) mg/dL Phosphorus (2.6-4.7) mg/dL Magnesium (1.8-2.4) mg/dL Total Bilirubin (0.2-1.0) mg/dL AST (15-37) IU/L ALT (14-63) IU/L Alkaline Phosphatase (46-116) U/L Troponin I (0.000-0.056) ng/mL Total Protein (6.4-8.2) g/dL Albumin (3.4-5.0) g/dL Globulin (2.6-4.0) g/dL Albumin/Globulin Ratio (0.9-1.6) Lipase 218 (73-393) U/L Urine Color Urine Appearance Urine pH (5.0-8.0) Ur Specific Mcgregor (1.001-1.035) Urine Protein (NEGATIVE) mg/dL Urine Glucose (UA) (NEGATIVE) mg/dL Urine Ketones (NEGATIVE) mg/dL Urine Occult Blood (NEGATIVE) Urine Nitrite (NEGATIVE) Urine Bilirubin (NEGATIVE) Urine Urobilinogen (<2.0) EU/dL Ur Leukocyte Esterase (NEGATIVE) Ketones SMALL H (NEG) 08/25/19 08/25/19 08/25/19 Range/Units 13:30 13:37 14:26 WBC (4.0-11.0) K/uL RBC (4.50-5.90) M/uL Hgb (13.0-17.0) g/dL Hct (38.0-50.0) % MCV (80.0-98.0) fL MCH (27.0-32.0) pg MCHC (31.0-37.0) g/dL RDW Std Deviation (28.0-62.0) fl RDW Coeff of Gisel (11.0-15.0) % Plt Count (150-400) K/uL MPV (7.40-12.00) fL Neut % (Auto) (48.0-80.0) % Lymph % (Auto) (16.0-40.0) % [place] % (Auto) (0.0-15.0) % Eos % (Auto) (0.0-7.0) % Baso % (Auto) (0.0-1.5) % Neut # (Auto) (1.4-5.7) K/uL Lymph # (Auto) (0.6-2.4) K/uL [place] # (Auto) (0.0-0.8) K/uL Eos # (Auto) (0.0-0.7) K/uL Baso # (Auto) (0.0-0.1) K/uL Nucleated RBC % /100WBC Nucleated RBCs # K/uL INR ABG pH (7.35-7.45) ABG pCO2 (35-45) mmHG ABG pO2 (75-100) mmHG ABG HCO3 (22-26) mEq/L ABG Total CO2 ABG Base Excess (-2.0-2.0) Sodium (136-148) mmol/L Potassium (3.5-5.1) mmol/L Chloride (98-107) mmol/L Carbon Dioxide (21.0-32.0) mmol/L BUN (7.0-18.0) mg/dL Creatinine (0.8-1.3) mg/dL Est Cr Clr Drug Dosing mL/min Estimated GFR (MDRD) ml/min Glucose (74-106) mg/dL POC Glucose > 500 H (60-110) mg/dL Hemoglobin A1c (4.5-6.2) % Calcium (8.5-10.1) mg/dL Phosphorus 7.6 H (2.6-4.7) mg/dL Magnesium 2.5 H (1.8-2.4) mg/dL Total Bilirubin (0.2-1.0) mg/dL AST (15-37) IU/L ALT (14-63) IU/L Alkaline Phosphatase (46-116) U/L Troponin I (0.000-0.056) ng/mL Total Protein (6.4-8.2) g/dL Albumin (3.4-5.0) g/dL Globulin (2.6-4.0) g/dL Albumin/Globulin Ratio (0.9-1.6) Lipase (73-393) U/L Urine Color YELLOW Urine Appearance CLEAR Urine pH 5.5 (5.0-8.0) Ur Specific Mcgregor 1.010 (1.001-1.035) Urine Protein NEGATIVE (NEGATIVE) mg/dL Urine Glucose (UA) >=1000 (NEGATIVE) mg/dL Urine Ketones 15 H (NEGATIVE) mg/dL Urine Occult Blood NEGATIVE (NEGATIVE) Urine Nitrite NEGATIVE (NEGATIVE) Urine Bilirubin NEGATIVE (NEGATIVE) Urine Urobilinogen 0.2 (<2.0) EU/dL Ur Leukocyte Esterase NEGATIVE (NEGATIVE) Ketones (NEG) 08/25/19 08/25/19 08/25/19 Range/Units 14:36 15:35 15:52 WBC (4.0-11.0) K/uL RBC (4.50-5.90) M/uL Hgb (13.0-17.0) g/dL Hct (38.0-50.0) % MCV (80.0-98.0) fL MCH (27.0-32.0) pg MCHC (31.0-37.0) g/dL RDW Std Deviation (28.0-62.0) fl RDW Coeff of Gisel (11.0-15.0) % Plt Count (150-400) K/uL MPV (7.40-12.00) fL Neut % (Auto) (48.0-80.0) % Lymph % (Auto) (16.0-40.0) % [place] % (Auto) (0.0-15.0) % Eos % (Auto) (0.0-7.0) % Baso % (Auto) (0.0-1.5) % Neut # (Auto) (1.4-5.7) K/uL Lymph # (Auto) (0.6-2.4) K/uL [place] # (Auto) (0.0-0.8) K/uL Eos # (Auto) (0.0-0.7) K/uL Baso # (Auto) (0.0-0.1) K/uL Nucleated RBC % /100WBC Nucleated RBCs # K/uL INR ABG pH 7.330 L (7.35-7.45) ABG pCO2 39 (35-45) mmHG ABG pO2 66 L (75-100) mmHG ABG HCO3 21 L (22-26) mEq/L ABG Total CO2 18.5 ABG Base Excess -4.9 L (-2.0-2.0) Sodium (136-148) mmol/L Potassium (3.5-5.1) mmol/L Chloride (98-107) mmol/L Carbon Dioxide (21.0-32.0) mmol/L BUN (7.0-18.0) mg/dL Creatinine (0.8-1.3) mg/dL Est Cr Clr Drug Dosing mL/min Estimated GFR (MDRD) ml/min Glucose (74-106) mg/dL POC Glucose > 500 H 449 H (60-110) mg/dL Hemoglobin A1c (4.5-6.2) % Calcium (8.5-10.1) mg/dL Phosphorus (2.6-4.7) mg/dL Magnesium (1.8-2.4) mg/dL Total Bilirubin (0.2-1.0) mg/dL AST (15-37) IU/L ALT (14-63) IU/L Alkaline Phosphatase (46-116) U/L Troponin I (0.000-0.056) ng/mL Total Protein (6.4-8.2) g/dL Albumin (3.4-5.0) g/dL Globulin (2.6-4.0) g/dL Albumin/Globulin Ratio (0.9-1.6) Lipase (73-393) U/L Urine Color Urine Appearance Urine pH (5.0-8.0) Ur Specific Mcgregor (1.001-1.035) Urine Protein (NEGATIVE) mg/dL Urine Glucose (UA) (NEGATIVE) mg/dL Urine Ketones (NEGATIVE) mg/dL Urine Occult Blood (NEGATIVE) Urine Nitrite (NEGATIVE) Urine Bilirubin (NEGATIVE) Urine Urobilinogen (<2.0) EU/dL Ur Leukocyte Esterase (NEGATIVE) Ketones (NEG) 08/25/19 08/25/19 08/25/19 Range/Units 16:36 17:05 18:05 WBC (4.0-11.0) K/uL RBC (4.50-5.90) M/uL Hgb (13.0-17.0) g/dL Hct (38.0-50.0) % MCV (80.0-98.0) fL MCH (27.0-32.0) pg MCHC (31.0-37.0) g/dL RDW Std Deviation (28.0-62.0) fl RDW Coeff of Gisel (11.0-15.0) % Plt Count (150-400) K/uL MPV (7.40-12.00) fL Neut % (Auto) (48.0-80.0) % Lymph % (Auto) (16.0-40.0) % [place] % (Auto) (0.0-15.0) % Eos % (Auto) (0.0-7.0) % Baso % (Auto) (0.0-1.5) % Neut # (Auto) (1.4-5.7) K/uL Lymph # (Auto) (0.6-2.4) K/uL [place] # (Auto) (0.0-0.8) K/uL Eos # (Auto) (0.0-0.7) K/uL Baso # (Auto) (0.0-0.1) K/uL Nucleated RBC % /100WBC Nucleated RBCs # K/uL INR ABG pH (7.35-7.45) ABG pCO2 (35-45) mmHG ABG pO2 (75-100) mmHG ABG HCO3 (22-26) mEq/L ABG Total CO2 ABG Base Excess (-2.0-2.0) Sodium 146 (136-148) mmol/L Potassium 4.6 (3.5-5.1) mmol/L Chloride 108 H (98-107) mmol/L Carbon Dioxide 24.4 (21.0-32.0) mmol/L BUN 28 H (7.0-18.0) mg/dL Creatinine 1.6 H (0.8-1.3) mg/dL Est Cr Clr Drug Dosing 48.58 mL/min Estimated GFR (MDRD) 56.0 ml/min Glucose 494 H (74-106) mg/dL POC Glucose 351 H 300 H (60-110) mg/dL Hemoglobin A1c (4.5-6.2) % Calcium 8.9 (8.5-10.1) mg/dL Phosphorus 3.7 (2.6-4.7) mg/dL Magnesium 2.5 H (1.8-2.4) mg/dL Total Bilirubin (0.2-1.0) mg/dL AST (15-37) IU/L ALT (14-63) IU/L Alkaline Phosphatase (46-116) U/L Troponin I (0.000-0.056) ng/mL Total Protein (6.4-8.2) g/dL Albumin (3.4-5.0) g/dL Globulin (2.6-4.0) g/dL Albumin/Globulin Ratio (0.9-1.6) Lipase (73-393) U/L Urine Color Urine Appearance Urine pH (5.0-8.0) Ur Specific Mcgregor (1.001-1.035) Urine Protein (NEGATIVE) mg/dL Urine Glucose (UA) (NEGATIVE) mg/dL Urine Ketones (NEGATIVE) mg/dL Urine Occult Blood (NEGATIVE) Urine Nitrite (NEGATIVE) Urine Bilirubin (NEGATIVE) Urine Urobilinogen (<2.0) EU/dL Ur Leukocyte Esterase (NEGATIVE) Ketones (NEG) 08/25/19 08/25/19 08/25/19 Range/Units 19:05 19:59 20:13 WBC (4.0-11.0) K/uL RBC (4.50-5.90) M/uL Hgb (13.0-17.0) g/dL Hct (38.0-50.0) % MCV (80.0-98.0) fL MCH (27.0-32.0) pg MCHC (31.0-37.0) g/dL RDW Std Deviation (28.0-62.0) fl RDW Coeff of Gisel (11.0-15.0) % Plt Count (150-400) K/uL MPV (7.40-12.00) fL Neut % (Auto) (48.0-80.0) % Lymph % (Auto) (16.0-40.0) % [place] % (Auto) (0.0-15.0) % Eos % (Auto) (0.0-7.0) % Baso % (Auto) (0.0-1.5) % Neut # (Auto) (1.4-5.7) K/uL Lymph # (Auto) (0.6-2.4) K/uL [place] # (Auto) (0.0-0.8) K/uL Eos # (Auto) (0.0-0.7) K/uL Baso # (Auto) (0.0-0.1) K/uL Nucleated RBC % /100WBC Nucleated RBCs # K/uL INR ABG pH (7.35-7.45) ABG pCO2 (35-45) mmHG ABG pO2 (75-100) mmHG ABG HCO3 (22-26) mEq/L ABG Total CO2 ABG Base Excess (-2.0-2.0) Sodium 144 (136-148) mmol/L Potassium 4.2 (3.5-5.1) mmol/L Chloride 110 H (98-107) mmol/L Carbon Dioxide 27.3 (21.0-32.0) mmol/L BUN 22 H (7.0-18.0) mg/dL Creatinine 1.4 H (0.8-1.3) mg/dL Est Cr Clr Drug Dosing 55.52 mL/min Estimated GFR (MDRD) > 60.0 ml/min Glucose 357 H (74-106) mg/dL POC Glucose 401 H 355 H (60-110) mg/dL Hemoglobin A1c (4.5-6.2) % Calcium 8.0 L (8.5-10.1) mg/dL Phosphorus 2.1 L (2.6-4.7) mg/dL Magnesium 2.2 (1.8-2.4) mg/dL Total Bilirubin (0.2-1.0) mg/dL AST (15-37) IU/L ALT (14-63) IU/L Alkaline Phosphatase (46-116) U/L Troponin I (0.000-0.056) ng/mL Total Protein (6.4-8.2) g/dL Albumin (3.4-5.0) g/dL Globulin (2.6-4.0) g/dL Albumin/Globulin Ratio (0.9-1.6) Lipase (73-393) U/L Urine Color Urine Appearance Urine pH (5.0-8.0) Ur Specific Mcgregor (1.001-1.035) Urine Protein (NEGATIVE) mg/dL Urine Glucose (UA) (NEGATIVE) mg/dL Urine Ketones (NEGATIVE) mg/dL Urine Occult Blood (NEGATIVE) Urine Nitrite (NEGATIVE) Urine Bilirubin (NEGATIVE) Urine Urobilinogen (<2.0) EU/dL Ur Leukocyte Esterase (NEGATIVE) Ketones (NEG) 08/25/19 08/25/19 08/25/19 Range/Units 20:58 22:05 23:04 WBC (4.0-11.0) K/uL RBC (4.50-5.90) M/uL Hgb (13.0-17.0) g/dL Hct (38.0-50.0) % MCV (80.0-98.0) fL MCH (27.0-32.0) pg MCHC (31.0-37.0) g/dL RDW Std Deviation (28.0-62.0) fl RDW Coeff of Gisel (11.0-15.0) % Plt Count (150-400) K/uL MPV (7.40-12.00) fL Neut % (Auto) (48.0-80.0) % Lymph % (Auto) (16.0-40.0) % [place] % (Auto) (0.0-15.0) % Eos % (Auto) (0.0-7.0) % Baso % (Auto) (0.0-1.5) % Neut # (Auto) (1.4-5.7) K/uL Lymph # (Auto) (0.6-2.4) K/uL [place] # (Auto) (0.0-0.8) K/uL Eos # (Auto) (0.0-0.7) K/uL Baso # (Auto) (0.0-0.1) K/uL Nucleated RBC % /100WBC Nucleated RBCs # K/uL INR ABG pH (7.35-7.45) ABG pCO2 (35-45) mmHG ABG pO2 (75-100) mmHG ABG HCO3 (22-26) mEq/L ABG Total CO2 ABG Base Excess (-2.0-2.0) Sodium (136-148) mmol/L Potassium (3.5-5.1) mmol/L Chloride (98-107) mmol/L Carbon Dioxide (21.0-32.0) mmol/L BUN (7.0-18.0) mg/dL Creatinine (0.8-1.3) mg/dL Est Cr Clr Drug Dosing mL/min Estimated GFR (MDRD) ml/min Glucose (74-106) mg/dL POC Glucose 266 H 153 H 111 H (60-110) mg/dL Hemoglobin A1c (4.5-6.2) % Calcium (8.5-10.1) mg/dL Phosphorus (2.6-4.7) mg/dL Magnesium (1.8-2.4) mg/dL Total Bilirubin (0.2-1.0) mg/dL AST (15-37) IU/L ALT (14-63) IU/L Alkaline Phosphatase (46-116) U/L Troponin I (0.000-0.056) ng/mL Total Protein (6.4-8.2) g/dL Albumin (3.4-5.0) g/dL Globulin (2.6-4.0) g/dL Albumin/Globulin Ratio (0.9-1.6) Lipase (73-393) U/L Urine Color Urine Appearance Urine pH (5.0-8.0) Ur Specific Mcgregor (1.001-1.035) Urine Protein (NEGATIVE) mg/dL Urine Glucose (UA) (NEGATIVE) mg/dL Urine Ketones (NEGATIVE) mg/dL Urine Occult Blood (NEGATIVE) Urine Nitrite (NEGATIVE) Urine Bilirubin (NEGATIVE) Urine Urobilinogen (<2.0) EU/dL Ur Leukocyte Esterase (NEGATIVE) Ketones (NEG) 08/25/19 08/26/19 08/26/19 Range/Units 23:58 00:15 01:02 WBC (4.0-11.0) K/uL RBC (4.50-5.90) M/uL Hgb (13.0-17.0) g/dL Hct (38.0-50.0) % MCV (80.0-98.0) fL MCH (27.0-32.0) pg MCHC (31.0-37.0) g/dL RDW Std Deviation (28.0-62.0) fl RDW Coeff of Gisel (11.0-15.0) % Plt Count (150-400) K/uL MPV (7.40-12.00) fL Neut % (Auto) (48.0-80.0) % Lymph % (Auto) (16.0-40.0) % [place] % (Auto) (0.0-15.0) % Eos % (Auto) (0.0-7.0) % Baso % (Auto) (0.0-1.5) % Neut # (Auto) (1.4-5.7) K/uL Lymph # (Auto) (0.6-2.4) K/uL [place] # (Auto) (0.0-0.8) K/uL Eos # (Auto) (0.0-0.7) K/uL Baso # (Auto) (0.0-0.1) K/uL Nucleated RBC % /100WBC Nucleated RBCs # K/uL INR ABG pH (7.35-7.45) ABG pCO2 (35-45) mmHG ABG pO2 (75-100) mmHG ABG HCO3 (22-26) mEq/L ABG Total CO2 ABG Base Excess (-2.0-2.0) Sodium 148 (136-148) mmol/L Potassium 4.3 (3.5-5.1) mmol/L Chloride 112 H (98-107) mmol/L Carbon Dioxide 29.0 (21.0-32.0) mmol/L BUN 19 H (7.0-18.0) mg/dL Creatinine 1.2 (0.8-1.3) mg/dL Est Cr Clr Drug Dosing 64.77 mL/min Estimated GFR (MDRD) > 60.0 ml/min Glucose 105 (74-106) mg/dL POC Glucose 108 121 H (60-110) mg/dL Hemoglobin A1c (4.5-6.2) % Calcium 7.9 L (8.5-10.1) mg/dL Phosphorus 2.3 L (2.6-4.7) mg/dL Magnesium 2.3 (1.8-2.4) mg/dL Total Bilirubin (0.2-1.0) mg/dL AST (15-37) IU/L ALT (14-63) IU/L Alkaline Phosphatase (46-116) U/L Troponin I (0.000-0.056) ng/mL Total Protein (6.4-8.2) g/dL Albumin (3.4-5.0) g/dL Globulin (2.6-4.0) g/dL Albumin/Globulin Ratio (0.9-1.6) Lipase (73-393) U/L Urine Color Urine Appearance Urine pH (5.0-8.0) Ur Specific Mcgregor (1.001-1.035) Urine Protein (NEGATIVE) mg/dL Urine Glucose (UA) (NEGATIVE) mg/dL Urine Ketones (NEGATIVE) mg/dL Urine Occult Blood (NEGATIVE) Urine Nitrite (NEGATIVE) Urine Bilirubin (NEGATIVE) Urine Urobilinogen (<2.0) EU/dL Ur Leukocyte Esterase (NEGATIVE) Ketones (NEG) 08/26/19 08/26/19 08/26/19 Range/Units 02:08 03:03 04:00 WBC 5.92 (4.0-11.0) K/uL RBC 4.78 (4.50-5.90) M/uL Hgb 12.7 L (13.0-17.0) g/dL Hct 39.6 (38.0-50.0) % MCV 82.8 (80.0-98.0) fL MCH 26.6 L (27.0-32.0) pg MCHC 32.1 (31.0-37.0) g/dL RDW Std Deviation 42.7 (28.0-62.0) fl RDW Coeff of Gisel 14 (11.0-15.0) % Plt Count 170 (150-400) K/uL MPV 12.60 H (7.40-12.00) fL Neut % (Auto) 37.9 L (48.0-80.0) % Lymph % (Auto) 48.1 H (16.0-40.0) % [place] % (Auto) 11.5 (0.0-15.0) % Eos % (Auto) 2.0 (0.0-7.0) % Baso % (Auto) 0.5 (0.0-1.5) % Neut # (Auto) 2.2 (1.4-5.7) K/uL Lymph # (Auto) 2.9 H (0.6-2.4) K/uL [place] # (Auto) 0.7 (0.0-0.8) K/uL Eos # (Auto) 0.1 (0.0-0.7) K/uL Baso # (Auto) 0.0 (0.0-0.1) K/uL Nucleated RBC % 0.0 /100WBC Nucleated RBCs # 0 K/uL INR ABG pH (7.35-7.45) ABG pCO2 (35-45) mmHG ABG pO2 (75-100) mmHG ABG HCO3 (22-26) mEq/L ABG Total CO2 ABG Base Excess (-2.0-2.0) Sodium (136-148) mmol/L Potassium (3.5-5.1) mmol/L Chloride (98-107) mmol/L Carbon Dioxide (21.0-32.0) mmol/L BUN (7.0-18.0) mg/dL Creatinine (0.8-1.3) mg/dL Est Cr Clr Drug Dosing mL/min Estimated GFR (MDRD) ml/min Glucose (74-106) mg/dL POC Glucose 144 H 178 H (60-110) mg/dL Hemoglobin A1c (4.5-6.2) % Calcium (8.5-10.1) mg/dL Phosphorus (2.6-4.7) mg/dL Magnesium (1.8-2.4) mg/dL Total Bilirubin (0.2-1.0) mg/dL AST (15-37) IU/L ALT (14-63) IU/L Alkaline Phosphatase (46-116) U/L Troponin I (0.000-0.056) ng/mL Total Protein (6.4-8.2) g/dL Albumin (3.4-5.0) g/dL Globulin (2.6-4.0) g/dL Albumin/Globulin Ratio (0.9-1.6) Lipase (73-393) U/L Urine Color Urine Appearance Urine pH (5.0-8.0) Ur Specific Mcgregor (1.001-1.035) Urine Protein (NEGATIVE) mg/dL Urine Glucose (UA) (NEGATIVE) mg/dL Urine Ketones (NEGATIVE) mg/dL Urine Occult Blood (NEGATIVE) Urine Nitrite (NEGATIVE) Urine Bilirubin (NEGATIVE) Urine Urobilinogen (<2.0) EU/dL Ur Leukocyte Esterase (NEGATIVE) Ketones (NEG) 08/26/19 08/26/19 08/26/19 Range/Units 04:00 04:00 04:00 WBC (4.0-11.0) K/uL RBC (4.50-5.90) M/uL Hgb (13.0-17.0) g/dL Hct (38.0-50.0) % MCV (80.0-98.0) fL MCH (27.0-32.0) pg MCHC (31.0-37.0) g/dL RDW Std Deviation (28.0-62.0) fl RDW Coeff of Gisel (11.0-15.0) % Plt Count (150-400) K/uL MPV (7.40-12.00) fL Neut % (Auto) (48.0-80.0) % Lymph % (Auto) (16.0-40.0) % [place] % (Auto) (0.0-15.0) % Eos % (Auto) (0.0-7.0) % Baso % (Auto) (0.0-1.5) % Neut # (Auto) (1.4-5.7) K/uL Lymph # (Auto) (0.6-2.4) K/uL [place] # (Auto) (0.0-0.8) K/uL Eos # (Auto) (0.0-0.7) K/uL Baso # (Auto) (0.0-0.1) K/uL Nucleated RBC % /100WBC Nucleated RBCs # K/uL INR ABG pH (7.35-7.45) ABG pCO2 (35-45) mmHG ABG pO2 (75-100) mmHG ABG HCO3 (22-26) mEq/L ABG Total CO2 ABG Base Excess (-2.0-2.0) Sodium 145 (136-148) mmol/L Potassium 4.5 (3.5-5.1) mmol/L Chloride 109 H (98-107) mmol/L Carbon Dioxide 24.8 (21.0-32.0) mmol/L BUN 19 H (7.0-18.0) mg/dL Creatinine 1.2 (0.8-1.3) mg/dL Est Cr Clr Drug Dosing 64.77 mL/min Estimated GFR (MDRD) > 60.0 ml/min Glucose 221 H (74-106) mg/dL POC Glucose 207 H (60-110) mg/dL Hemoglobin A1c (4.5-6.2) % Calcium 7.8 L (8.5-10.1) mg/dL Phosphorus 2.6 (2.6-4.7) mg/dL Magnesium 2.0 (1.8-2.4) mg/dL Total Bilirubin 0.4 (0.2-1.0) mg/dL AST 18 (15-37) IU/L ALT 25 (14-63) IU/L Alkaline Phosphatase 55 (46-116) U/L Troponin I (0.000-0.056) ng/mL Total Protein 6.7 (6.4-8.2) g/dL Albumin 2.7 L (3.4-5.0) g/dL Globulin 4.0 (2.6-4.0) g/dL Albumin/Globulin Ratio 0.7 L (0.9-1.6) Lipase (73-393) U/L Urine Color Urine Appearance Urine pH (5.0-8.0) Ur Specific Mcgregor (1.001-1.035) Urine Protein (NEGATIVE) mg/dL Urine Glucose (UA) (NEGATIVE) mg/dL Urine Ketones (NEGATIVE) mg/dL Urine Occult Blood (NEGATIVE) Urine Nitrite (NEGATIVE) Urine Bilirubin (NEGATIVE) Urine Urobilinogen (<2.0) EU/dL Ur Leukocyte Esterase (NEGATIVE) Ketones (NEG) 08/26/19 08/26/19 Range/Units 07:42 11:54 WBC (4.0-11.0) K/uL RBC (4.50-5.90) M/uL Hgb (13.0-17.0) g/dL Hct (38.0-50.0) % MCV (80.0-98.0) fL MCH (27.0-32.0) pg MCHC (31.0-37.0) g/dL RDW Std Deviation (28.0-62.0) fl RDW Coeff of Gisel (11.0-15.0) % Plt Count (150-400) K/uL MPV (7.40-12.00) fL Neut % (Auto) (48.0-80.0) % Lymph % (Auto) (16.0-40.0) % [place] % (Auto) (0.0-15.0) % Eos % (Auto) (0.0-7.0) % Baso % (Auto) (0.0-1.5) % Neut # (Auto) (1.4-5.7) K/uL Lymph # (Auto) (0.6-2.4) K/uL [place] # (Auto) (0.0-0.8) K/uL Eos # (Auto) (0.0-0.7) K/uL Baso # (Auto) (0.0-0.1) K/uL Nucleated RBC % /100WBC Nucleated RBCs # K/uL INR ABG pH (7.35-7.45) ABG pCO2 (35-45) mmHG ABG pO2 (75-100) mmHG ABG HCO3 (22-26) mEq/L ABG Total CO2 ABG Base Excess (-2.0-2.0) Sodium (136-148) mmol/L Potassium (3.5-5.1) mmol/L Chloride (98-107) mmol/L Carbon Dioxide (21.0-32.0) mmol/L BUN (7.0-18.0) mg/dL Creatinine (0.8-1.3) mg/dL Est Cr Clr Drug Dosing mL/min Estimated GFR (MDRD) ml/min Glucose (74-106) mg/dL POC Glucose 270 H 346 H (60-110) mg/dL Hemoglobin A1c (4.5-6.2) % Calcium (8.5-10.1) mg/dL Phosphorus (2.6-4.7) mg/dL Magnesium (1.8-2.4) mg/dL Total Bilirubin (0.2-1.0) mg/dL AST (15-37) IU/L ALT (14-63) IU/L Alkaline Phosphatase (46-116) U/L Troponin I (0.000-0.056) ng/mL Total Protein (6.4-8.2) g/dL Albumin (3.4-5.0) g/dL Globulin (2.6-4.0) g/dL Albumin/Globulin Ratio (0.9-1.6) Lipase (73-393) U/L Urine Color Urine Appearance Urine pH (5.0-8.0) Ur Specific Mcgregor (1.001-1.035) Urine Protein (NEGATIVE) mg/dL Urine Glucose (UA) (NEGATIVE) mg/dL Urine Ketones (NEGATIVE) mg/dL Urine Occult Blood (NEGATIVE) Urine Nitrite (NEGATIVE) Urine Bilirubin (NEGATIVE) Urine Urobilinogen (<2.0) EU/dL Ur Leukocyte Esterase (NEGATIVE) Ketones (NEG) Med Orders - Current: Current Medications Acetaminophen (Tylenol Extra Strength) 1,000 mg PO Q6H PRN PRN Reason: Pain (mild 1-3) Last Admin: 08/26/19 08:55 Dose: 1,000 mg Enoxaparin Sodium (Lovenox) 40 mg SUBCUT Q24H [facility] Last Admin: 08/25/19 16:15 Dose: 40 mg Insulin Human Regular 100 unit (/ Sodium Chloride) 100 mls @ 7 mls/hr IV TITRATE SOMMER; Protocol Last Titration: 08/26/19 00:00 Dose: 1 unit/hr, 1 mls/hr Sodium Chloride (Normal Saline) 1,000 mls @ 100 mls/hr IV ASDIRECTED [facility] Last Admin: 08/25/19 19:29 Dose: 100 mls/hr Dextrose/Sodium Chloride (Dextrose 5%-1/2 Ns) 1,000 mls @ 75 mls/hr IV ASDIRECTED [facility] Last Admin: 08/26/19 08:50 Dose: 75 mls/hr Insulin Aspart (Novolog) 0 unit SUBCUT Q4HR [facility]OMMER; Protocol Last Admin: 08/26/19 12:19 Dose: 8 unit Insulin Glargine (Lantus Solostar) 10 units SUBCUT DAILY [facility] Last Admin: 08/26/19 02:05 Dose: 10 unit Discontinued Medications Sodium Chloride (Normal Saline) 1,000 mls @ 999 mls/hr IV STAT ONE Stop: 08/25/19 14:16 Last Admin: 08/25/19 13:34 Dose: 999 mls/hr Sodium Chloride (Normal Saline) 1,000 mls @ 999 mls/hr IV ONETIME ONE Stop: 08/25/19 15:30 Last Admin: 08/25/19 14:31 Dose: 999 mls/hr Sodium Chloride (Normal Saline) 1,000 mls @ 999 mls/hr IV BOLUS SOMMER Stop: 08/28/19 16:31 Last Admin: 08/25/19 17:00 Dose: 999 mls/hr Sodium Chloride (Sodium Chloride 0.45%) 1,000 mls @ 999 mls/hr IV STAT SOMMER Stop: 08/26/19 18:16 Last Admin: 08/25/19 17:18 Dose: 999 mls/hr Dextrose/Sodium Chloride (Dextrose 5%-1/2 Ns) 1,000 mls @ 999 mls/hr IV ASDIRECTED SOMMER Stop: 08/25/19 19:16 Last Admin: 08/25/19 18:23 Dose: 999 mls/hr Ondansetron HCl (Zofran) 4 mg IVPUSH ONETIME ONE Stop: 08/25/19 13:24 Last Admin: 08/25/19 13:34 Dose: 4 mg - Problem List Review Problem List Initiated/Reviewed/Updated: Yes - Plan Plan:: 49 yo male admitted for hyperglycemia, dehydration, nausea and vomiting. Patient has been rehydrated and nausea has resolved. He has been switched to SC insulin. Will continue to monitor blood glucose.
[2019-08-26] MEDS ORDERED: Docusate Sodium 100 MG Cap PO PRN (15:31)
[2019-08-26] MEDS: Benzocaine/Cetylpyridinium/Menthol Lozenge MUCMEM PRN (15:49)
[2019-08-26] MEDS: Enoxaparin 40 MG/0.4 ML Syringe SUBCUT SCH (15:49)
--- NOTE | 2019-08-26 19:06 | PN ---
THC Physician - Brief Progress [id number]/09/2019 19:04[facility] Neelima garcia [place] - GINO ([facility] - Samuel MCGREGOR of Service 08/26/2019 19:04HPI/Events of Note Brief eICU NoteAlerted for hyperglycemia: Insulin SS changed from medium to high dose.Interve ntions Major-Hyperglycemia - active titration of insulin therapy
[2019-08-26] MEDS ORDERED: Insulin Glargine,Human Rec. Analog 100 Units/ML 3 ML Pen SUBCUT ONE (22:30)
[2019-08-27] MEDS: Insulin Aspart 100 Units/ML 3 ML Pen SUBCUT SCH ×5 (00:27→17:17)
[2019-08-27 07:21] LABS: BLOOD UREA NITROGEN,BUN 13 mg/dL (7.0-18.0); CARBON DIOXIDE,CO2 27.8 mmol/L (21.0-32.0); CHLORIDE,CL 106 mmol/L (98-107); GLUCOSE RANDOM 166 mg/dL (74-106); POTASSIUM,K 3.6 mmol/L (3.5-5.1); SODIUM,NA 141 mmol/L (136-148)
[2019-08-27] MEDS: Benzocaine/Cetylpyridinium/Menthol Lozenge MUCMEM PRN (08:06)
[2019-08-27] MEDS: Insulin Glargine,Human Rec. Analog 100 Units/ML 3 ML Pen SUBCUT SCH (08:57)
--- NOTE | 2019-08-27 11:23 | PCM.DCSUM1 ---
<Crow Zamarripa - Last Filed: 08/27/19 15:01> Discharge Summary - Hospital Course Free Text/Narrative:: 49 y/o male who presented to the ER complaining of nausea, vomiting and generalized weakness. He was found to be hyperglycemic with blood glucose of 900. He was admitted for Hyperglycemic hyperosmolar state. He was started on insulin drip and hydrated with normal saline. His mentation improved during this hospitalization. He was more alert and denied any nausea, vomiting. Apparently, patient was unaware of his diabetes. He was transitioned to SQ insulin. He was discharged home on Glargine 20 U at bedtime and Novolog 5 units TID with meals. In addition, he was prescribed glucose monitor, strips, lancets and needles. He was advised to follow-up with his PCP for further management of his newly diagnosed Diabetes type 2. - Discharge Data Discharge Date: 08/27/19 Discharge Disposition: Home, Self-Care 01 Condition: Good - Referral to Home Health Primary Care Physician: PCP None - Patient Instructions Diet: Diabetic Diet Activity: As Tolerated Notify Provider of: Fever, Increased Pain, Swelling and Redness, Nausea and/or Vomiting - Discharge Plan *PRESCRIPTION DRUG MONITORING PROGRAM REVIEWED*: Not Applicable *COPY OF PRESCRIPTION DRUG MONITORING REPORT IN PATIENT CHRISTIAN: Not Applicable Prescriptions/Med Rec: Blood Sugar Diagnostic [Glucose Test Strip] 1 pack MC TID #1 pack Blood-Glucose Meter [Blood Glucose Meter] 1 each MC TID #1 each Insulin Aspart [NovoLOG] 5 unit SQ TID #1 pen Insulin Glarg,Human.Rec.Analog [Lantus Solostar] 15 units SUBCUT BEDTIME #1 pen Lancets [Blood Lancets] 1 each MC TID #100 each Pen Needle, Diabetic [Novofine 32] 1 each MC TID #1 pack Home Medications: Home Meds Chlorpheniramine/Dextromethorp [Chld Robitussin Night Cough Dm] 15 ml PO BEDTIME PRN 08/25/19 [History] DM/P-Ephed/Acetaminoph/Doxylam [[place] Plus Cold+Flu Pkt] 1 each PO DAILY PRN 08/25/19 [History] Ibuprofen 200 mg PO Q6H PRN 08/25/19 [History] Blood Sugar Diagnostic [Glucose Test Strip] 1 pack MC TID #1 pack 08/27/19 [Rx] Blood-Glucose Meter [Blood Glucose Meter] 1 each TID #1 each 08/27/19 [Rx] Insulin Aspart [NovoLOG] 5 unit SQ TID #1 pen 08/27/19 [Rx] Insulin Glarg,Human.Rec.Analog [Lantus Solostar] 15 units SUBCUT BEDTIME #1 pen 08/27/19 [Rx] Lancets [Blood Lancets] 1 each TID #100 each 08/27/19 [Rx] Pen Needle, Diabetic [Novofine 32] 1 each TID #1 pack 08/27/19 [Rx] Patient Handouts: Insulin Treatment for Diabetes Mellitus, Tips for Eating Away From Home If You Have Diabetes, Insulin Aspart injection, Diabetic Ketoacidosis, Insulin Injection Instructions, Using Insulin Pens, Adult, Insulin Glargine injection, Preventing Diabetic Ketoacidosis Referrals: [facility] [Outside] Nitin Call MD [Ordering Only Provider] - 09/12/19 12:30 pm (Please arrive 15 minutes early. ) - Discharge Summary/Plan Comment DC Time >30 min.: No - Patient Data Vitals - Most Recent: Last Vital Signs Temp 35.9 C 08/27/19 07:30 Pulse 77 08/26/19 19:00 Resp 18 08/27/19 07:30 BP 114/74 08/27/19 07:30 Pulse Ox 98 08/27/19 07:30 Orthostatic Blood Pressure [ 131/91 Standing] Orthostatic Blood Pressure [ 117/83 Sitting] Orthostatic Blood Pressure [ 134/78 Supine] Weight - Most Recent: 77.564 kg I&O - Last 24 hours: Intake & Output 08/26/19 08/27/19 08/27/19 22:59 06:59 14:59 Intake Total 1660 125 Output Total 1130 750 Balance 530 -625 Lab Results - Last 24 hrs: Laboratory Results - last 24 hr 08/26/19 08/26/19 08/26/19 Range/Units 11:54 16:52 19:55 WBC (4.0-11.0) K/uL RBC (4.50-5.90) M/uL Hgb (13.0-17.0) g/dL Hct (38.0-50.0) % MCV (80.0-98.0) fL MCH (27.0-32.0) pg MCHC (31.0-37.0) g/dL RDW Std Deviation (28.0-62.0) fl RDW Coeff of Gisel (11.0-15.0) % Plt Count (150-400) K/uL MPV (7.40-12.00) fL Neut % (Auto) (48.0-80.0) % Lymph % (Auto) (16.0-40.0) % [place] % (Auto) (0.0-15.0) % Eos % (Auto) (0.0-7.0) % Baso % (Auto) (0.0-1.5) % Neut # (Auto) (1.4-5.7) K/uL Lymph # (Auto) (0.6-2.4) K/uL [place] # (Auto) (0.0-0.8) K/uL Eos # (Auto) (0.0-0.7) K/uL Baso # (Auto) (0.0-0.1) K/uL Nucleated RBC % /100WBC Nucleated RBCs # K/uL Sodium (136-148) mmol/L Potassium (3.5-5.1) mmol/L Chloride (98-107) mmol/L Carbon Dioxide (21.0-32.0) mmol/L BUN (7.0-18.0) mg/dL Creatinine (0.8-1.3) mg/dL Est Cr Clr Drug Dosing mL/min Estimated GFR (MDRD) ml/min Glucose (74-106) mg/dL POC Glucose 346 H 281 H 309 H (60-110) mg/dL Calcium (8.5-10.1) mg/dL Total Bilirubin (0.2-1.0) mg/dL AST (15-37) IU/L ALT (14-63) IU/L Alkaline Phosphatase (46-116) U/L Total Protein (6.4-8.2) g/dL Albumin (3.4-5.0) g/dL Globulin (2.6-4.0) g/dL Albumin/Globulin Ratio (0.9-1.6) 11/10/19 11/10/19 11/10/19 Range/Units 00:22 04:29 06:15 WBC 4.89 (4.0-11.0) K/uL RBC 4.89 (4.50-5.90) M/uL Hgb 12.9 L (13.0-17.0) g/dL Hct 40.0 (38.0-50.0) % MCV 81.8 (80.0-98.0) fL MCH 26.4 L (27.0-32.0) pg MCHC 32.3 (31.0-37.0) g/dL RDW Std Deviation 41.2 (28.0-62.0) fl RDW Coeff of Gisel 14 (11.0-15.0) % Plt Count 162 (150-400) K/uL MPV 13.00 H (7.40-12.00) fL Neut % (Auto) 30.9 L (48.0-80.0) % Lymph % (Auto) 55.2 H (16.0-40.0) % [place] % (Auto) 11.7 (0.0-15.0) % Eos % (Auto) 1.8 (0.0-7.0) % Baso % (Auto) 0.4 (0.0-1.5) % Neut # (Auto) 1.5 (1.4-5.7) K/uL Lymph # (Auto) 2.7 H (0.6-2.4) K/uL [place] # (Auto) 0.6 (0.0-0.8) K/uL Eos # (Auto) 0.1 (0.0-0.7) K/uL Baso # (Auto) 0.0 (0.0-0.1) K/uL Nucleated RBC % 0.0 /100WBC Nucleated RBCs # 0 K/uL Sodium (136-148) mmol/L Potassium (3.5-5.1) mmol/L Chloride (98-107) mmol/L Carbon Dioxide (21.0-32.0) mmol/L BUN (7.0-18.0) mg/dL Creatinine (0.8-1.3) mg/dL Est Cr Clr Drug Dosing mL/min Estimated GFR (MDRD) ml/min Glucose (74-106) mg/dL POC Glucose 261 H 146 H (60-110) mg/dL Calcium (8.5-10.1) mg/dL Total Bilirubin (0.2-1.0) mg/dL AST (15-37) IU/L ALT (14-63) IU/L Alkaline Phosphatase (46-116) U/L Total Protein (6.4-8.2) g/dL Albumin (3.4-5.0) g/dL Globulin (2.6-4.0) g/dL Albumin/Globulin Ratio (0.9-1.6) 08/27/19 08/27/19 Range/Units 06:15 07:45 WBC (4.0-11.0) K/uL RBC (4.50-5.90) M/uL Hgb (13.0-17.0) g/dL Hct (38.0-50.0) % MCV (80.0-98.0) fL MCH (27.0-32.0) pg MCHC (31.0-37.0) g/dL RDW Std Deviation (28.0-62.0) fl RDW Coeff of Gisel (11.0-15.0) % Plt Count (150-400) K/uL MPV (7.40-12.00) fL Neut % (Auto) (48.0-80.0) % Lymph % (Auto) (16.0-40.0) % [place] % (Auto) (0.0-15.0) % Eos % (Auto) (0.0-7.0) % Baso % (Auto) (0.0-1.5) % Neut # (Auto) (1.4-5.7) K/uL Lymph # (Auto) (0.6-2.4) K/uL [place] # (Auto) (0.0-0.8) K/uL Eos # (Auto) (0.0-0.7) K/uL Baso # (Auto) (0.0-0.1) K/uL Nucleated RBC % /100WBC Nucleated RBCs # K/uL Sodium 141 (136-148) mmol/L Potassium 3.6 (3.5-5.1) mmol/L Chloride 106 (98-107) mmol/L Carbon Dioxide 27.8 (21.0-32.0) mmol/L BUN 13 (7.0-18.0) mg/dL Creatinine 1.0 (0.8-1.3) mg/dL Est Cr Clr Drug Dosing 77.73 mL/min Estimated GFR (MDRD) > 60.0 ml/min Glucose 166 H (74-106) mg/dL POC Glucose 180 H (60-110) mg/dL Calcium 8.3 L (8.5-10.1) mg/dL Total Bilirubin 0.3 (0.2-1.0) mg/dL AST 19 (15-37) IU/L ALT 23 (14-63) IU/L Alkaline Phosphatase 49 (46-116) U/L Total Protein 6.7 (6.4-8.2) g/dL Albumin 2.8 L (3.4-5.0) g/dL Globulin 3.9 (2.6-4.0) g/dL Albumin/Globulin Ratio 0.7 L (0.9-1.6) JESSEE Results - Last 24 hrs: Microbiology 08/26/19 16:00 Influenza Type A Antigen Screen - Final Nasopharyngeal Swab NEGATIVE INFLUENZA A VIRUS AG REFERENCE RANGE: NEGATIVE Influenza Type B Antigen Screen - Final NEGATIVE INFLUENZA B VIRUS AG REFERENCE RANGE: NEGATIVE Med Orders - Current: Current Medications Acetaminophen (Tylenol Extra Strength) 1,000 mg PO Q6H PRN PRN Reason: Pain (mild 1-3) Last Admin: 08/26/19 08:55 Dose: 1,000 mg Benzocaine/Menthol (Cepacol Sore Throat) 1 lozenge MUCMEM Q6H PRN PRN Reason: Sore Throat Last Admin: 08/27/19 08:06 Dose: 1 lozenge Docusate Sodium (Colace) 100 mg PO DAILY PRN PRN Reason: Constipation Last Admin: 08/26/19 15:49 Dose: 100 mg Enoxaparin Sodium (Lovenox) 40 mg SUBCUT Q24H SOMMER Last Admin: 08/26/19 15:49 Dose: 40 mg Insulin Human Regular 100 unit (/ Sodium Chloride) 100 mls @ 7 mls/hr IV TITRATE SOMMER; Protocol Last Titration: 08/26/19 00:00 Dose: 1 unit/hr, 1 mls/hr Sodium Chloride (Normal Saline) 1,000 mls @ 100 mls/hr IV ASDIRECTED SOMMER Last Admin: 08/25/19 19:29 Dose: 100 mls/hr Insulin Aspart (Novolog) 0 unit SUBCUT Q4HR SOMMER; Protocol Last Admin: 08/27/19 08:07 Dose: 3 unit Insulin Glargine (Lantus Solostar) 10 units SUBCUT DAILY SOMMER Last Admin: 08/27/19 08:57 Dose: 10 unit Insulin Glargine (Lantus Solostar) 15 units SUBCUT BEDTIME SOMMER Discontinued Medications Sodium Chloride (Normal Saline) 1,000 mls @ 999 mls/hr IV STAT ONE Stop: 08/25/19 14:16 Last Admin: 08/25/19 13:34 Dose: 999 mls/hr Sodium Chloride (Normal Saline) 1,000 mls @ 999 mls/hr IV ONETIME ONE Stop: 08/25/19 15:30 Last Admin: 08/25/19 14:31 Dose: 999 mls/hr Sodium Chloride (Normal Saline) 1,000 mls @ 999 mls/hr IV BOLUS SOMMER Stop: 08/28/19 16:31 Last Admin: 08/25/19 17:00 Dose: 999 mls/hr Sodium Chloride (Sodium Chloride 0.45%) 1,000 mls @ 999 mls/hr IV STAT SOMMER Stop: 08/26/19 18:16 Last Admin: 08/25/19 17:18 Dose: 999 mls/hr Dextrose/Sodium Chloride (Dextrose 5%-1/2 Ns) 1,000 mls @ 999 mls/hr IV ASDIRECTED SOMMER Stop: 08/25/19 19:16 Last Admin: 08/25/19 18:23 Dose: 999 mls/hr Dextrose/Sodium Chloride (Dextrose 5%-1/2 Ns) 1,000 mls @ 75 mls/hr IV ASDIRECTED SOMMER Last Admin: 08/26/19 08:50 Dose: 75 mls/hr Insulin Glargine (Lantus Solostar) 15 units SUBCUT ONETIME ONE Stop: 08/26/19 22:31 Last Admin: 08/26/19 22:19 Dose: 15 unit Ondansetron HCl (Zofran) 4 mg IVPUSH ONETIME ONE Stop: 08/25/19 13:24 Last Admin: 08/25/19 13:34 Dose: 4 mg <Skelton,Domenic J - Last Filed: 08/28/19 20:39> Discharge Summary - Referral to Home Health Primary Care Physician: PCP None - Patient Summary/Data Consults: Consultations 08/27/19 16:15 Consult to Dredge Hand [Consult to Diabetic Nurse Specialist] [CONS] Routine - Patient Data Vitals - Most Recent: Last Vital Signs Temp 36.3 C 08/27/19 16:05 Pulse 92 08/27/19 16:05 Resp 18 08/27/19 16:05 BP 124/89 08/27/19 16:05 Pulse Ox 98 08/27/19 16:05 Orthostatic Blood Pressure [ 131/91 Standing] Orthostatic Blood Pressure [ 117/83 Sitting] Orthostatic Blood Pressure [ 134/78 Supine] Med Orders - Current: Current Medications Discontinued Medications Acetaminophen (Tylenol Extra Strength) 1,000 mg PO Q6H PRN PRN Reason: Pain (mild 1-3) Last Admin: 08/26/19 08:55 Dose: 1,000 mg Benzocaine/Menthol (Cepacol Sore Throat) 1 lozenge MUCMEM Q6H PRN PRN Reason: Sore Throat Last Admin: 08/27/19 08:06 Dose: 1 lozenge Docusate Sodium (Colace) 100 mg PO DAILY PRN PRN Reason: Constipation Last Admin: 08/26/19 15:49 Dose: 100 mg Enoxaparin Sodium (Lovenox) 40 mg SUBCUT Q24H SOMMER Last Admin: 08/27/19 17:17 Dose: Not Given Sodium Chloride (Normal Saline) 1,000 mls @ 999 mls/hr IV STAT ONE Stop: 08/25/19 14:16 Last Admin: 08/25/19 13:34 Dose: 999 mls/hr Sodium Chloride (Normal Saline) 1,000 mls @ 999 mls/hr IV ONETIME ONE Stop: 08/25/19 15:30 Last Admin: 08/25/19 14:31 Dose: 999 mls/hr Insulin Human Regular 100 unit (/ Sodium Chloride) 100 mls @ 7 mls/hr IV TITRATE SOMMER; Protocol Last Titration: 08/26/19 00:00 Dose: 1 unit/hr, 1 mls/hr Sodium Chloride (Normal Saline) 1,000 mls @ 999 mls/hr IV BOLUS SOMMER Stop: 08/28/19 16:31 Last Admin: 08/25/19 17:00 Dose: 999 mls/hr Sodium Chloride (Sodium Chloride 0.45%) 1,000 mls @ 999 mls/hr IV STAT SOMMER Stop: 08/26/19 18:16 Last Admin: 08/25/19 17:18 Dose: 999 mls/hr Dextrose/Sodium Chloride (Dextrose 5%-1/2 Ns) 1,000 mls @ 999 mls/hr IV ASDIRECTED SOMMER Stop: 08/25/19 19:16 Last Admin: 08/25/19 18:23 Dose: 999 mls/hr Sodium Chloride (Normal Saline) 1,000 mls @ 100 mls/hr IV ASDIRECTED SOMMER Last Admin: 08/25/19 19:29 Dose: 100 mls/hr Dextrose/Sodium Chloride (Dextrose 5%-1/2 Ns) 1,000 mls @ 75 mls/hr IV ASDIRECTED SOMMER Last Admin: 08/26/19 08:50 Dose: 75 mls/hr Insulin Aspart (Novolog) 0 unit SUBCUT Q4HR SOMMER; Protocol Last Admin: 08/27/19 17:17 Dose: Not Given Insulin Glargine (Lantus Solostar) 10 units SUBCUT DAILY [facility] Last Admin: 08/27/19 08:57 Dose: 10 unit Insulin Glargine (Lantus Solostar) 15 units SUBCUT BEDTIME SOMMER Insulin Glargine (Lantus Solostar) 15 units SUBCUT ONETIME ONE Stop: 08/26/19 22:31 Last Admin: 08/26/19 22:19 Dose: 15 unit Ondansetron HCl (Zofran) 4 mg IVPUSH ONETIME ONE Stop: 08/25/19 13:24 Last Admin: 08/25/19 13:34 Dose: 4 mg - Free Text/Narrative Note: I have seen and evaluated the patient with the resident. I have discussed findings and treatment plan with the resident. I agree with the assessment and plan outlined in the following note.
[2019-08-27] MEDS: Enoxaparin 40 MG/0.4 ML Syringe SUBCUT SCH (17:17)
[2019-08-27] MEDS ORDERED: Insulin Glargine,Human Rec. Analog 100 Units/ML 3 ML Pen SUBCUT SCH (21:00)
== END 2019-08-27 16:15 | disposition home or self-care (01) | DRG 420 ==
LOC: MW.ED 13:00 → MW.ICU 14:47 → MW.MS 08-26 22:15
PROVIDERS: ADMIT Internal Medicine; ATTEND Internal Medicine
DX: E11.00 Type 2 diabetes mellitus with hyperosmolarity without nonketotic hyperglycemic-hyperosmolar coma (NKHHC) (principal); N17.9 Acute kidney failure, unspecified; E87.5 Hyperkalemia; E83.41 Hypermagnesemia; E83.39 Other disorders of phosphorus metabolism; I10 Essential (primary) hypertension; E86.0 Dehydration
CPT/HCPCS: 36415; 36600; 70450; 70450-26; 71045; 71045-26; 80048; 80053; 81003; 82009; 82803; 82962; 83036; 83690; 83735; 84100; 84484; 85025; 85610; 87804; 93005; 96361; 96374; 99284; 99285-25; A9270-GY; J1650; J1815-GY; J2405; J7030; J7040; J7042